=== PATIENT | female | born 1975 | race Caucasian/White ===

== ENCOUNTER 2021-09-22 12:45 | Outpatient (RCR) | payer MEDICAID, OTHER | END 2021-10-15 | disposition home or self-care (01) | LOC: ONC 12:45 | PROVIDERS: ATTEND Internal Medicine Hematology & Oncology | DX: C56.9 Malignant neoplasm of unspecified ovary (principal); C73 Malignant neoplasm of thyroid gland; E11.9 Type 2 diabetes mellitus without complications; I10 Essential (primary) hypertension; K21.9 Gastro-esophageal reflux disease without esophagitis; F32.9 Major depressive disorder, single episode, unspecified; Z90.710 Acquired absence of both cervix and uterus; Z92.21 Personal history of antineoplastic chemotherapy; Z90.89 Acquired absence of other organs | CPT/HCPCS: 99214 ==

== ENCOUNTER → 2021-11-08 | Outpatient (CLI) | payer MEDICAID ==
[~2021-11-08] MED LIST: CATHETER FLUSH 10 ML SYR IV PRN; HOLD METFORMIN - RECEIVED CONTRAST 20 ML VIAL IV SCH; IOHEXOL 350 MG/ML 100 ML (OMNIPAQUE 350) VIAL IV ONE; NS 100 ML (IVPB) BAG IV ONE
--- NOTE | 2021-11-08 15:32 | Diagnostic Imaging Report ---
EXAMINATION: CT neck, chest, abdomen and pelvis with intravenous contrast. TECHNIQUE: Multiple contiguous axial images were obtained through the neck, chest, abdomen and pelvis after the uneventful administration of intravenous contrast. All CT scans use one or more of the following dose optimizing techniques: automated exposure control, MA and/or KvP adjustment based on patient size and exam type or iterative reconstruction. 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 COMPARISON: None. FINDINGS: Neck CT: The posterior nasopharynx and oropharynx demonstrate appropriate symmetry. There is no displacement of the parapharyngeal fat planes. There is no abnormal process evident within the prevertebral or retropharyngeal space. There is no evidence of abnormal thickening of the epiglottis or aryepiglottic folds. The vocal folds appear symmetric. The parotid and submandibular glands are unremarkable. The thyroid is surgically absent. No evidence of recurrent or residual thyroid tissue in the surgical bed. No pathologically enlarged lymphadenopathy is seen in the neck. No focal inflammatory changes or soft tissue mass. No loculated fluid collections. The vascular structures the neck demonstrate no evidence of high-grade stenosis on this nondedicated exam. The visualized intracranial contents demonstrate no evidence of pathologic intracranial enhancement or intracranial mass effect. Visualized orbital contents are unremarkable. Retained secretions are seen in the right maxillary sinus. The mastoid air cells are clear. No acute abnormalities are seen in the cervical spine. The craniocervical junction is intact. Chest CT: The heart size is normal. No pericardial effusion is present. There is no mediastinal, hilar, or axillary lymphadenopathy. No focal consolidation or suspicious pulmonary nodules. No central endobronchial obstructing lesions. No pleural effusion or pneumothorax. Prior laminectomy is visualized from T1 to T9. There are subtle sclerotic findings in the T6 and T7 vertebral bodies. No evidence of acute fracture. Abdomen and pelvis CT: No hydronephrosis or renal calculi. No solid renal masses seen. There is normal excretion of contrast on delayed images. The urinary bladder is unremarkable. The liver, spleen, pancreas, and adrenal glands have a normal appearance. The gallbladder is unremarkable. There is no pathologically enlarged mesenteric or retroperitoneal adenopathy. A ventral hernia is seen superior to the umbilical region extending right of midline. This contains a loop of small bowel. No associated bowel obstruction is seen. Normal appendix is seen in the right lower quadrant. There is no free fluid or free air. No acute osseous abnormalities. IMPRESSION: 1. Postsurgical changes of thyroidectomy. No residual or recurrent thyroid tissue. No pathologically enlarged lymphadenopathy in neck, chest, abdomen and pelvis. 2. Subtle sclerotic findings in the T6 and T7 vertebral bodies. This is nonspecific and attention on followup is recommended. If indicated MRI of the thoracic spine may be considered to further evaluate. 3. No evidence of solid organ metastatic disease in the abdomen and pelvis. No suspicious pulmonary nodules in the chest. 4. Ventral hernia extending right of midline containing a loop of small bowel. No associated bowel obstruction or significant inflammatory changes. Dictated by: Dictated on workstation # [id number]
== END ==
LOC: RAD 11:45
PROVIDERS: ATTEND Internal Medicine Hematology & Oncology
DX: C73 Malignant neoplasm of thyroid gland (principal); K43.9 Ventral hernia without obstruction or gangrene; G95.89 Other specified diseases of spinal cord; Z90.89 Acquired absence of other organs
CPT/HCPCS: 70491; 71260; 74176

== ENCOUNTER 2021-11-12 09:44 | Outpatient (RCR) | payer MEDICAID ==
[2021-11-08 11:35] LABS: BASOPHILS % (AUTO) 0 % (0-10); EOSINOPHILS # (AUTO) 0.1 10^3/uL (0.0-0.3); EOSINOPHILS % (AUTO) 2 % (0-10); HEMATOCRIT 34 % (35-52); HEMOGLOBIN 10.5 g/dL (11.5-16.0); LYMPHOCYTES % (AUTO) 23 % (12-44); MEAN CORPUSCULAR HEMOGLOBIN 26 pg (25-34); MEAN CORPUSCULAR HGB CONC 31 g/dL (32-36); MEAN CORPUSCULAR VOLUME 85 fL (80-99); MEAN PLATELET VOLUME 10.6 fL (9.0-12.2); MONOCYTES # (AUTO) 0.5 10^3/uL (0.0-1.0); MONOCYTES % (AUTO) 6 % (0-12); NEUTROPHILS # (AUTO) 6.2 10^3/uL (1.8-7.8); NEUTROPHILS % (AUTO) 70 % (42-75); PLATELET COUNT 272 10^3/uL (130-400); WHITE BLOOD COUNT 8.9 10^3/uL (4.3-11.0)
[2021-11-08 11:59] LABS: ALBUMIN 3.7 GM/DL (3.2-4.5); BILIRUBIN,TOTAL 0.3 MG/DL (0.1-1.0); CALCIUM 9.2 MG/DL (8.5-10.1); CREATININE SERUM 1.7 MG/DL (0.60-1.30); POTASSIUM 4.3 MMOL/L (3.6-5.0); TOTAL PROTEIN 7.8 GM/DL (6.4-8.2)
[2021-11-12 11:54] LABS: CREATININE SERUM 1.3 MG/DL (0.60-1.30)
== END 2021-11-15 | disposition home or self-care (01) ==
LOC: ONC 09:44
PROVIDERS: ATTEND Internal Medicine Hematology & Oncology
DX: Z45.2 Encounter for adjustment and management of vascular access device (principal); C56.9 Malignant neoplasm of unspecified ovary; C73 Malignant neoplasm of thyroid gland; E11.9 Type 2 diabetes mellitus without complications; I10 Essential (primary) hypertension; K21.9 Gastro-esophageal reflux disease without esophagitis; Z90.710 Acquired absence of both cervix and uterus; Z92.21 Personal history of antineoplastic chemotherapy
CPT/HCPCS: 36591; 80053; 82565; 82728; 82746; 83540; 83550; 84432; 84443; 84520; 85025; 86304; 86376; 86800; 99213

== ENCOUNTER → 2021-11-16 | Outpatient (CLI) | payer MEDICAID ==
[~2021-11-16] MED LIST changes: -CATHETER FLUSH 10 ML SYR IV PRN; +GADOTERATE 0.5 MMOL/ML (CLARISCAN) 20 ML VIAL IV ONE; -HOLD METFORMIN - RECEIVED CONTRAST 20 ML VIAL IV SCH; -IOHEXOL 350 MG/ML 100 ML (OMNIPAQUE 350) VIAL IV ONE; -NS 100 ML (IVPB) BAG IV ONE
--- NOTE | 2021-11-16 11:22 | Diagnostic Imaging Report ---
TECHNIQUE: Multiplanar, multisequence MRI of the thoracic spine was performed with and without contrast. REASON FOR EXAM: Abnormal findings on recent CT. Further characterization. History of malignant neoplasm of the throat. COMPARISON: 11/08/2021. FINDINGS: No acute fracture or dislocation is seen in the thoracic spine. No focal suspicious osseous lesions are identified. No abnormal enhancement. The area of sclerosis in the T6 and T7 vertebral bodies seen on the prior CT does not correspond to any underlying mass or edema. There is likely chronic injury with associated calcification at the left T6-T7 facet. Prior laminectomy changes are again visualized from T1 to T9. Alignment of the thoracic spine is anatomic. The thoracic spinal cord demonstrates normal intrinsic signal. No evidence of abnormal enhancement or cord expansion. No epidural collections. Degenerative changes are seen throughout the thoracic spine with posterior disc bulges and facet hypertrophy. There is contact with the anterior aspect of the thoracic spinal cord at the T2-T3, T5-T6, and T7-T8 levels. No significant spinal canal stenosis is seen in the thoracic spine. Unujiwug-id-rdyzdj left foraminal stenosis is present at the T6-T7 level. The paraspinal soft tissues are unremarkable. IMPRESSION: 1. No abnormal enhancement or underlying suspicious mass in the T6 and T7 vertebral bodies in the area of prior sclerosis seen on CT. Findings may represent old injury, particularly given the prominent calcification associated with the left T6-T7 facet. 2. No acute fracture or dislocation in the thoracic spine. 3. Normal signal characteristics of the thoracic spinal cord. 4. Degenerative changes in the thoracic spine, greatest at T2-T3, T5-T6, T6-T7, and T7-T8. Dictated by: Dictated on workstation # [id number]
== END ==
LOC: RAD 10:15
PROVIDERS: ATTEND Internal Medicine Hematology & Oncology
DX: M47.814 Spondylosis without myelopathy or radiculopathy, thoracic region (principal); C73 Malignant neoplasm of thyroid gland
CPT/HCPCS: 72157

== ENCOUNTER 2021-11-26 10:36 | Outpatient (RCR) | payer MEDICAID ==
[2021-11-26 11:07] LABS: BASOPHILS % (AUTO) 0 % (0-10); EOSINOPHILS # (AUTO) 0.2 10^3/uL (0.0-0.3); EOSINOPHILS % (AUTO) 2 % (0-10); HEMATOCRIT 35 % (35-52); HEMOGLOBIN 10.8 g/dL (11.5-16.0); LYMPHOCYTES # (AUTO) 1.9 10^3/uL (1.0-4.0); LYMPHOCYTES % (AUTO) 17 % (12-44); MEAN CORPUSCULAR HEMOGLOBIN 27 pg (25-34); MEAN CORPUSCULAR HGB CONC 31 g/dL (32-36); MEAN CORPUSCULAR VOLUME 86 fL (80-99); MEAN PLATELET VOLUME 10.8 fL (9.0-12.2); MONOCYTES # (AUTO) 0.7 10^3/uL (0.0-1.0); MONOCYTES % (AUTO) 7 % (0-12); NEUTROPHILS # (AUTO) 8.1 10^3/uL (1.8-7.8); NEUTROPHILS % (AUTO) 74 % (42-75); PLATELET COUNT 267 10^3/uL (130-400)
== END 2021-12-13 | disposition home or self-care (01) ==
LOC: ONC 10:36
PROVIDERS: ATTEND Internal Medicine Hematology & Oncology
DX: Z45.2 Encounter for adjustment and management of vascular access device (principal); C56.9 Malignant neoplasm of unspecified ovary; C73 Malignant neoplasm of thyroid gland; E11.9 Type 2 diabetes mellitus without complications; D50.9 Iron deficiency anemia, unspecified; I10 Essential (primary) hypertension; K21.9 Gastro-esophageal reflux disease without esophagitis; Z90.710 Acquired absence of both cervix and uterus; Z92.21 Personal history of antineoplastic chemotherapy
CPT/HCPCS: 36415; 85025; 99213

== ENCOUNTER 2022-02-25 10:49 | Outpatient (RCR) | payer MEDICAID ==
[2022-02-25 11:24] LABS: CREATININE SERUM 2.11 MG/DL (0.60-1.30)
[2022-02-25 11:32] LABS: BASOPHILS % (AUTO) 0 % (0-10); EOSINOPHILS # (AUTO) 0.1 10^3/uL (0.0-0.3); EOSINOPHILS % (AUTO) 1 % (0-10); HEMATOCRIT 35 % (35-52); HEMOGLOBIN 11.2 g/dL (11.5-16.0); LYMPHOCYTES # (AUTO) 2.6 10^3/uL (1.0-4.0); LYMPHOCYTES % (AUTO) 27 % (12-44); MEAN CORPUSCULAR HEMOGLOBIN 27 pg (25-34); MEAN CORPUSCULAR HGB CONC 32 g/dL (32-36); MEAN CORPUSCULAR VOLUME 83 fL (80-99); MEAN PLATELET VOLUME 11.9 fL (9.0-12.2); MONOCYTES # (AUTO) 0.7 10^3/uL (0.0-1.0); MONOCYTES % (AUTO) 7 % (0-12); NEUTROPHILS # (AUTO) 6.1 10^3/uL (1.8-7.8); NEUTROPHILS % (AUTO) 64 % (42-75); PLATELET COUNT 225 10^3/uL (130-400); WHITE BLOOD COUNT 9.6 10^3/uL (4.3-11.0)
[2022-02-25] MEDS ORDERED: HEParin (CENTRAL IV FLUSH) 500 UNIT/5 ML SYR ONE (11:39)
[2022-02-25 11:47] LABS: ALBUMIN 3.9 GM/DL (3.2-4.5); BILIRUBIN,TOTAL 0.3 MG/DL (0.1-1.0); CALCIUM 9.2 MG/DL (8.5-10.1); POTASSIUM 4.5 MMOL/L (3.6-5.0); TOTAL PROTEIN 7.6 GM/DL (6.4-8.2)
== END 2022-03-15 | disposition home or self-care (01) ==
LOC: ONC 10:49
PROVIDERS: ATTEND Internal Medicine Hematology & Oncology
DX: C56.9 Malignant neoplasm of unspecified ovary (principal); C73 Malignant neoplasm of thyroid gland; E11.9 Type 2 diabetes mellitus without complications; D50.9 Iron deficiency anemia, unspecified; I10 Essential (primary) hypertension; K21.9 Gastro-esophageal reflux disease without esophagitis; Z90.710 Acquired absence of both cervix and uterus; Z92.21 Personal history of antineoplastic chemotherapy
CPT/HCPCS: 36415; 80053; 82728; 82746; 83540; 83550; 84432; 84443; 85025; 86304; 86800

== ENCOUNTER 2022-07-07 20:27 | Emergency (ER) | payer MEDICAID ==
[~2022-07-07] VITALS: Ht 162 cm; Wt 100.0 kg
[2022-07-07] MEDS ORDERED: TETANUS,DIPTH,PERTUSS P/F (BOOSTRIX) 0.5 ML VIAL IM ONE (20:30)
--- NOTE | 2022-07-07 20:41 | ED Lower Extremity ---
General Chief Complaint: Trauma-Non Activation Stated Complaint: FALL Source: patient, EMS History of Present Illness Date Seen by Provider: Jul 07, 2022 Time Seen by Provider: 20:27 Initial Comments PT ARRIVES VIA EMS FROM HOME JUST PRIOR TO ARRIVAL, PT TRIPPED ON UNEVEN PAVEMENT AND FELL, LANDING DIRECTLY ON HER RIGHT KNEE NO OTHER INJURIES FROM THE INCIDENT NO PRIOR INJURIES OR SURGERY ON THIS KNEE PT HAS HISTORY OF FREQUENT FALLS, AND HAS A CANE BUT DOES NOT USE IT PT IS DIABETIC WITH HISTORY OF PERIPHERAL NEUROPATHY NO NEW PARESTHESIAS OR MOTOR DEFICITS PT IS NOT ON ASPIRIN OR BLOOD THINNERS LAST TETANUS IN 2010 PCP: RICHARD PATTERSON MISHMASH Allergies and Home Medications Allergies Coded Allergies: No Allergy Information Available (Unverified , 11/08/21) Patient Home Medication List Home Medication List Reviewed: Yes Tramadol HCl (Ultram) 50 Mg Tablet, 50 MG PO Q4H Prescribed by: LATOSHA RUBY on 07/07/222206 Review of Systems Constitutional: no symptoms reported Respiratory: no symptoms reported Cardiovascular: no symptoms reported Gastrointestinal: no symptoms reported Genitourinary: no symptoms reported Musculoskeletal: see HPI Skin: other (ABRASIONS TO RIGHT KNEE) Psychiatric/Neurological: No Symptoms Reported, Pre-Existing Deficit (PERIPHERAL NEUROPATHY) Past Cptxlsx-Lvaeaz-Emontz Hx Past Medical History Surgeries: Yes (LEFT KNEE SCOPE/MENISCUS TEAR) Gallbladder, Orthopedic Respiratory: No Cardiac: Yes High Cholesterol, Hypertension Neurological: Yes Neuropathy Genitourinary: No Gastrointestinal: Yes Gastroesophageal Reflux Musculoskeletal: Yes (FREQUENT FALLS) Arthritis Endocrine: Yes Diabetes, Insulin dep, Hypothyroidsim HEENT: No (GLASSES) Cancer: No Psychosocial: No Integumentary: No Blood Disorders: No Physical Exam Vital Signs Vital Signs - First Documented 07/07/22 07/07/22 20:27 22:27 Temp 36.4 Pulse 88 Resp 16 B/P (MAP) 149/89 (109) Pulse Ox 98 O2 Delivery Room Air Capillary Refill : Height, Weight, BMI Height: '" Weight: lbs. oz. kg; BMI Method: General Appearance: WD/WN, no apparent distress, obese Neck: non-tender, full range of motion Cardiovascular: normal peripheral pulses, regular rate, rhythm, no murmur Hips: bilateral hip normal inspection Legs: bilateral leg normal inspection Knees: right knee ecchymosis, right knee pain, right knee soft tissue tenderness, right knee swelling, right knee other (ABRASION) Ankles: bilateral ankle normal inspection Feet: bilateral foot normal inspection Neurologic/Tendon: normal motor functions, normal tendon functions, other (PERIPHERAL NEUROPATHY) Neurologic/Psychiatric: naprapath II-XII nml as tested, alert, normal mood/affect, oriented x 3 Skin: normal color, warm/dry, ecchymosis (AND ABRASION TO RIGHT KNEE) Progress/Results/Core Measures Results/Orders My Orders Orders - LATOSHA RUBY DO Dipht,Pertuss(Acell),Tet Adult (Boostrix (07/07/22 20:30) Knee, Right, 4 Views Or > (07/07/22 20:30) Rx-Tramadol Hcl (Rx-Ultram) (07/07/22 22:01) Calvin Bandage (07/07/22 22:01) Knee Immobilizer (07/07/22 22:01) Medications Given in ED Current Medications Medications Dose Ordered Sig/Fang Route Start Time Stop Time Status Last Admin Dose Admin Diphtheria/ Tetanus/Acell Pertussis 0.5 ml ONCE ONCE IM 07/07/22 20:30 07/07/22 20:31 DC 07/07/22 22:18 0.5 ML Vital Signs/I&O 07/07/22 07/07/22 20:27 22:27 Temp 36.4 36.6 Pulse 88 84 Resp 16 16 B/P (MAP) 149/89 (109) 137/71 Pulse Ox 98 O2 Delivery Room Air Progress Progress Note : Progress Note AT DISMISSAL, PT STATES THAT SHE WAS DX WITH A "STRESS FRACTURE" IN HER LEFT FOOT LAST WEEK AT [facility]. NO KNOWN INJURY--JUST HAD PAIN AND SWELLING. NO RX'S OR TREATMENT FOR IT, AND NO REFERRAL TO [facility] OR ORTHOPEDIC SURGEON. PT STATES SHE HAS A WALKER AT HOME, BUT DOES NOT USE IT SHE ALSO HAS ACCESS TO A WHEELCHAIR--FAMILY MEMBER HAS ONE AND IS NOT USING IT. Diagnostic Imaging Comments XRAYS RIGHT KNEE--PER RADIOLOGIST REPORT AT 215 FINDINGS: 3 views of the knee demonstrate a displaced fracture of the inferior pole of the patella with diastasis of approximately 1.3 cm. Surrounding soft tissue swelling is noted with minimal joint fluid present. On one view only, there is a vague lucency along the mid aspect of the tibia near the medial tibial eminence which likely represents a nutrient foramen with a nondisplaced fracture less likely but not excluded. There is no depression of the tibial plateau. The joint spaces appear maintained. IMPRESSION: 1. Displaced patellar fracture with minimal joint effusion. 2. Vague lucency in the proximal mid tibial plateau, nonspecific, see above discussion. Reviewed: Reviewed by Me Departure Impression Primary Impression: Closed fracture of right patella Additional Impression: Qkkzinsaib-vbqewmprv-rliwaeb (DPT) vaccination administered at current visit Disposition: HOME, SELF-CARE Condition: Stable Departure-Patient Inst. Decision time for Depature: 22:00 Referrals: MURPHY HUTCHISON APRN (PCP) Primary Care Physician ABBEY HIDALGO MD Patient Instructions: Diphtheria and Tetanus Toxoids, and Acellular Pertussis Vaccine, Patella Fracture (DC), Skin Abrasions (DC) Add. Discharge Instructions: ICE TO AREA AT 20 MINUTE INTERVALS CALVIN WRAP AND KNEE IMMOBILIZER AT ALL TIMES ELEVATE LEG MUCH POSSIBLE NO WEIGHT BEARING AT ANY TIME-- USE YOUR WALKER OR WHEELCHAIR FOLLOW UP WITH DR. HIDALGO, ORTHOPEDIC SURGEON, FOR FURTHER CARE--CALL IN THE MORNING TO SCHEDULE APPOINTMENT. All discharge instructions reviewed with patient and/or family. Voiced understanding. Scripts Tramadol HCl (Ultram) 50 Mg Tablet 50 MG PO Q4H for Pain, #20 TAB Prov: LATOSHA RUBY DO 07/07/22 LATOSHA RUBY DO Jul 07, 2022 20:41
--- NOTE | 2022-07-07 21:44 | Diagnostic Imaging Report ---
INDICATION: Fall, pain. EXAMINATION: Right knee, 07/07/2022. FINDINGS: 3 views of the knee demonstrate a displaced fracture of the inferior pole of the patella with diastasis of approximately 1.3 cm. Surrounding soft tissue swelling is noted with minimal joint fluid present. On one view only, there is a vague lucency along the mid aspect of the tibia near the medial tibial eminence which likely represents a nutrient foramen with a nondisplaced fracture less likely but not excluded. There is no depression of the tibial plateau. The joint spaces appear maintained. IMPRESSION: 1. Displaced patellar fracture with minimal joint effusion. 2. Vague lucency in the proximal mid tibial plateau, nonspecific, see above discussion. Dictated by: Dictated on workstation # [id number]
[2022-07-07] MEDS ORDERED: TRAM-42 PO (22:06)
[2022-07-07 22:27] VITALS: BP 137/71
== END 2022-07-07 22:27 | disposition home or self-care (01) ==
LOC: EDUNIT# 20:27 → ER 20:28
DX: S82.001A Unspecified fracture of right patella, initial encounter for closed fracture (principal); E11.42 Type 2 diabetes mellitus with diabetic polyneuropathy; Z23 Encounter for immunization; Z28.311 Partially vaccinated for COVID-19; Z79.4 Long term (current) use of insulin; W01.0XXA Fall on same level from slipping, tripping and stumbling without subsequent striking against object, initial encounter
CPT/HCPCS: 73564; 90715

== ENCOUNTER → 2022-07-13 | Outpatient (CLI) | payer MEDICAID ==
[~2022-07-13] VITALS: Ht 162.6 cm; Wt 100.0 kg
[~2022-07-13] MED LIST changes: +ALOG25TA2 PO; +CETI10CA PO; +DIPH25CA79 PO; +DULO60CA59 PO; +FAMO40TA72 PO; +FLUT9.9S NS; -GADOTERATE 0.5 MMOL/ML (CLARISCAN) 20 ML VIAL IV ONE; +INSU100V5 SQ; +LEVO100C4 PO; +LISI10TA25 PO; +NOVALOG; +PANT40TA52 PO; +PREG50CA2 PO; +PSEU60TA88 PO; +ROSU20TA32 PO; +TRAM-42 PO
== END ==
LOC: PREOP 05:34
PROVIDERS: ATTEND Orthopaedic Surgery
DX: S82.001A Unspecified fracture of right patella, initial encounter for closed fracture (principal); X58.XXXA Exposure to other specified factors, initial encounter

== ENCOUNTER 2022-07-20 10:15 | Day surgery (SDC) | payer MEDICAID ==
--- NOTE | 2022-07-12 14:01 | HISTORY AND PHYSICAL ---
DATE OF SERVICE: ADMISSION HISTORY AND PHYSICAL DATE OF ADMISSION: 07/20/2022. This will be for outpatient surgery on 07/20/2022 for right patella fixation. HISTORY OF PRESENT ILLNESS: The patient is a 47-year-old female when she tripped on the sidewalk she tripped over a curb and landed directly on her right knee. This occurred last week. She was found to have a displaced inferior pole patellar fracture. There is comminution of the inferior pole. She is unable to extend her knee. Because of this, recommended the patient undergo operative fixation. REVIEW OF SYSTEMS: No chest pain, no shortness of breath, no dysuria. PAST MEDICAL HISTORY: Hyperlipidemia, hyperthyroidism, arthritis, type 2 diabetes. PAST SURGICAL HISTORY: Cholecystectomy, left ACL reconstruction . FAMILY HISTORY: Significant for diabetes, heart disease, hypertension, hyperlipidemia, thyroid disease. MEDICATIONS: metformin, Lyrica, pantoprazole, NovoLog, famotidine, insulin. ALLERGIES: BACTRIM. SOCIAL HISTORY: The patient denies alcohol and tobacco use. PHYSICAL EXAMINATION: GENERAL: The patient is well-developed, well-nourished, in no acute distress. HEENT: Normocephalic, atraumatic. Pupils are equal, round and reactive to light. Oropharynx is clear. NECK: Supple, no lymphadenopathy. LUNGS: Clear to auscultation bilaterally. HEART: Regular rate and rhythm. ABDOMEN: Soft, nontender, nondistended. EXTREMITIES: The patient is unable to extend her right knee. There was an abrasion of her patella. There is no significant surrounding erythema or warmth. She is tender over her fracture site. Pulses were symmetric. Sensation is intact distally. IMPRESSION: Displaced inferior pole patellar fracture. PLAN: Open reduction and internal fixation of the right patella versus fragment excision with patellar tendon repair. We discussed risks, benefits, options, ramifications and recovery. She understands and wishes to proceed. Job ID: [id number] DocumentID: [id number] Dictated Date: 07/12/2022 13:45:38 [employer] Date: 07/12/2022 14:00:25 Dictated By: ABBEY HIDALGO MD
[~2022-07-20] VITALS: Ht 162.6 cm; Wt 100.0 kg
[2022-07-20] VITALS (12 sets, daily range): BP systolic 135–167; BP diastolic 79–99
[~2022-07-20 10:15] MED LIST changes: +oxyCODONE/APAP 5/325MG (PERCOCET 5) TABLET PO PRN
--- NOTE | 2022-07-20 10:39 | Progress Note-Pre Operative ---
Pre-Operative Progress Note Date of Available H&P: Aug 11, 2021 Date H&P Reviewed: Jul 20, 2022 Time H&P Reviewed: 10:39 Changes from last HP none Pre-Operative Diagnosis: right patella inferior pole fracture ABBEY HIDALGO MD Jul 20, 2022 10:39
--- NOTE | 2022-07-20 10:40 | Progress Note-Post Operative ---
Post-Operative Progess Note Surgeon (s)/Guard Sergeant (s) Surgeon ABBEY HIDALGO MD Guard Sergeant: Aric Hopkins Pre-Operative Diagnosis right patella inferior pole fracture Post-Operative Diagnosis right patella inferior pole fracture Procedure & Operative Findings Date of Procedure 07/20/22 Procedure Performed/Findings right patella tendon repair and partial patellectomy Anesthesia Type GETA Estimated Blood Loss Estimated blood loss (mL): minimal Specimens/Packing Specimens Removed none Packing: none ABBEY HIDALGO MD Jul 20, 2022 10:40
[2022-07-20] MEDS ORDERED: fentaNYL INJ 100 MCG/2 ML AMP ONE (10:42)
[2022-07-20] MEDS ORDERED: proPOfol 200 MG/20 ML (DIPRIVAN) VIAL IV ONE (10:42)
[2022-07-20] MEDS ORDERED: ONDANSETRON 4 MG/2 ML (SDV) Z0FRAN ONE (10:42)
[2022-07-20] MEDS ORDERED: SEVOFLURANE (ULTANE) 15 ML INHAL SOLN ONE (10:42)
[2022-07-20] MEDS ORDERED: LIDOCAINE PF 2% 5 ML (XYLOCAINE) VIAL ONE (10:42)
[2022-07-20] MEDS ORDERED: MIDAZOLAM 2 MG/2 ML (VERSED) VIAL ONE (10:42)
[2022-07-20] MEDS: LACTATED RINGERS 1,000 ML IV PRN ×2 (10:50→13:43)
[2022-07-20] MEDS ORDERED: BUPIVACAINE 0.25% 30 ML (SENSORCAINE) VIAL ONE (10:52)
[2022-07-20] MEDS ORDERED: inSUlin (REGULAR) HUMAN 1 UNIT/0.01 ML (CHARGE PER UNIT) ONE ×2 (10:57→11:28)
[2022-07-20] MEDS ORDERED: inSUlin (REGULAR) HUMAN 1 UNIT/0.01 ML (CHARGE PER UNIT) IV ONE ×2 (11:15→11:30)
[2022-07-20] MEDS ORDERED: ceFAZolin INJECTION 1,000 MG VIAL IV ONE (11:15)
[2022-07-20] MEDS ORDERED: ceFAZolin INJECTION 2,000 MG in NS (IVPB) 50 ML IV NR (11:15)
[2022-07-20] MEDS ORDERED: NS (IVPB) 50 ML ONE (11:35)
[2022-07-20] MEDS ORDERED: ceFAZolin INJECTION 2,000 MG ONE (11:35)
[2022-07-20] MEDS ORDERED: HYDROmorphone 2 MG/ML VIAL (DILAUDID) ONE (12:09)
[2022-07-20] MEDS ORDERED: BUPIVACAINE 0.25% 30 ML (SENSORCAINE) VIAL INJ ONE (12:40)
[2022-07-20] MEDS ORDERED: ONDANSETRON 4 MG/2 ML (SDV) Z0FRAN IVP PRN (13:00)
[2022-07-20] MEDS ORDERED: HYDROmorphone 2 MG/ML VIAL (DILAUDID) IV ONE (13:00)
[2022-07-20] MEDS ORDERED: morphine INJ 10 MG/ML 1ML (SYR OR VIAL) IVP ONE (13:00)
[2022-07-20] MEDS ORDERED: morphine INJ 10 MG/ML 1ML (SYR OR VIAL) ONE (13:39)
[2022-07-20] MEDS ORDERED: LACTATED RINGERS 1,000 ML IV ONE (13:42)
--- NOTE | 2022-07-20 15:28 | Physical Therapy Ortho Eval ---
PT Orthopedic Evaluation Type of Surgery right patella ORIF, brace limits knee flexion to 30 degrees, 50% WB on right leg Prior Level of Function Current Living Status: Spouse Subjective Subjective Patient in bed pre tx, agrees to PT, has 8/10 pain in right leg. Patient states her has built a ramp so she can enter her home easier. Entry Into Home: Ramp Motor Control Motor Control: Motor Control WNL Transfer SCALE: Activities may be completed with or without assistive devices. 8-Spoibxzzzr-ykshmtz completes the activity by him/herself with no assistance from a helper. 5-Set-up or Clean-up Assistance-helper sets up or cleans up; patient completes activity. [place] assists only prior to or following the activity. 4-Supervision or Touching Assistance-helper provides verbal cues and/or touching/steadying and/or contact guard assistance as patient completes activity. Assistance may be provided throughout the activity or intermittently. 3-Partial/Moderate Assistance-helper does LESS THAN HALF the effort. [place] lifts, holds or supports trunk or limbs, but provides less than half the effort. 2-Substantial/Maximal Assistance-helper does MORE THAN HALF the effort. [place] lifts or holds trunk or limbs and provides more than half the effort. 4-Yixrflbaf-krfkak does ALL the effort. Patient does none of the effort to complete the activity. Or, the assistance of 2 or more helpers is required for the patient to complete the activity. If activity was not attempted, code reason: 7-Patient Refused. 9-Not Applicable-not attempted and the patient did not perform the activity before the current illness, exacerbation or injury. 10-Not Attempted due to Environmental Limitations-(lack of equipment, weather restraints, etc.). 88-Not Attempted due to Medical Conditions or Safety Concerns. Transfers (B, C, W/C) (QC): 4 Gait Right Lower Extremity: Right Weight Bearing Status RLE: Partial Weight Bearing Left Lower Extremity: Left Weight Bearing Status LLE: Full Weight Bearing Summary/Comments Patient ambulated 20' with a rolling walker with CGA, safe ambulation and she is compliant with her weight bearing restrictions Treatment Rendered Treatment: Therapeutic Exercises, Gait Train Exercise Instruction: Quad Sets, Straight Leg Raise, Ankle Pumps Assessment/Goals Goal Time Frame: 1 Visit Understands HEP: Yes Safe Ambulation: Yes Plan Treatment Plan: Discharge PT/Family Agrees to Plan: Yes Time Time In: 1507 Time Out: 1520 Total Billed Treatment Time: 13 Billed Treatment Time 1 visit EVL BELINDA POTTS PT Jul 20, 2022 15:28
[2022-07-20] MEDS ORDERED: ONDANSETRON 4 MG/2 ML (SDV) Z0FRAN IVP ONE (15:30)
--- NOTE | 2022-07-20 15:33 | Anesthesia-General Post-Op ---
General Patient Condition Mental Status/LOC: Same as Preop Cardiovascular: Satisfactory Nausea/Vomiting: Absent Respiratory: Satisfactory Pain: Controlled Complications: Absent Post Op Complications Complications None Follow Up Care/Instructions Patient Instructions None needed. Anesthesia/Patient Condition Patient Condition Patient was seen in PACU and doing well with no complaints, stable vital signs, no apparent adverse anesthesia problems. No complications reported per nursing. JONATHAN RODRIGUEZ DO Jul 20, 2022 15:33
--- NOTE | 2022-07-21 00:08 | OPERATIVE REPORT ---
DATE OF SERVICE: 07/20/2022 PREOPERATIVE DIAGNOSIS: Comminuted right inferior pole patellar fracture, closed and displaced. POSTOPERATIVE DIAGNOSIS: Comminuted right inferior pole patellar fracture, closed and displaced. PROCEDURES PERFORMED: 1. Right patellar tendon repair. 2. Right partial patellectomy. SURGEON: Alberto Hidalgo MD CERTIFED REFRIGERATION OPERATOR: Aric Hopkins, who assisted throughout the procedure and closed the incision. ANESTHESIA: General endotracheal by Dr. Ladd. TOURNIQUET TIME: 36 minutes at 300 mmHg. ESTIMATED BLOOD LOSS: Minimal. DRAINS: None. COMPLICATIONS: None. POSTOPERATIVE PLAN: A 0 to 30 degrees range of motion with 50% weightbearing for 2 weeks and then advance to weightbearing as tolerated with gradual resumption of flexion. The patient was transferred to the recovery room awake and stable condition. STATEMENT OF MEDICAL NECESSITY: The patient is a 47-year-old female, who fell on her flexed knee, sustaining a displaced inferior pole patellar fracture. This was severely comminuted and the patient was counseled that this would likely be irreparable due to the comminution and the small fragment sizes. She understood this and elected to proceed with surgical intervention. DESCRIPTION OF PROCEDURE: After risks and benefits of the procedure were discussed and questions were answered, an informed consent was signed and placed on chart, the operative site was confirmed in the preoperative holding area initialed by the surgeon. The patient was then transferred to the operating room and after adequate levels of general endotracheal anesthetic were obtained, a timeout was called, confirming the operative site. The right lower extremity was prepped and draped in the usual sterile fashion with the leg elevated and the knee flexed, tourniquet was inflated to 300 mmHg. Longitudinal incision was made. Underlying soft tissues were carefully dissected. The retinaculum was incised exposing the comminuted fragments, which were unable to hold any hardware. Therefore, they were excised sharply. The patellar tendon was then repaired to a bleeding bed through 3 vertical tunnels. A #5 Tevdek was used to repair the tendon in a locked running fashion. The 2 sutures were used, which created forearms at the proximal aspect of the tendon stump. These were then passed through the respective drill holes, which had been prepared in the patella. These were then tied over bony bridge with a patellar tendon reapproximated to the bleeding bed of the patella inferior pole and excellent repair was obtained with no undue tension at the repair site. The retinaculum was then closed with #1 Vicryl in kqofdq-ch-fbeel interrupted fashion. The knee was flexed and was stable to beyond 90 degrees. The wound was copiously irrigated. The tourniquet was deflated, 3-0 Vicryl was used to reapproximate subcutaneous tissue, narda used on the skin. A soft dressing was applied followed by a brace. The patient was transferred to the recovery room awake and in stable condition. Job ID: [id number] DocumentID: [id number] Dictated Date: 07/20/2022 12:52:22 Personal Development Mentor Date: 07/21/2022 00:08:20 Dictated By: ALBERTO HIDALGO MD
== END 2022-07-20 16:55 ==
LOC: SDC 10:15
PROVIDERS: ATTEND Orthopaedic Surgery
DX: S82.041A Displaced comminuted fracture of right patella, initial encounter for closed fracture (principal); E66.9 Obesity, unspecified; Z68.37 Body mass index [BMI] 37.0-37.9, adult
CPT/HCPCS: 82947; 87081

== ENCOUNTER 2023-02-01 05:29 | Outpatient (CLI) | payer MEDICAID ==
[~2023-02-01] VITALS: Ht 162.6 cm; Wt 100.0 kg
[~2023-02-01 05:29] MED LIST changes: -oxyCODONE/APAP 5/325MG (PERCOCET 5) TABLET PO PRN
== END 2023-02-01 17:45 | disposition home or self-care (01) ==
LOC: PREOP 05:29
PROVIDERS: ATTEND Surgery
DX: Z01.818 Encounter for other preprocedural examination (principal)

== ENCOUNTER 2023-02-02 10:57 | Outpatient (RCR) | payer MEDICAID ==
[2023-01-19 11:08] LABS: BASOPHILS % (AUTO) 0 % (0-10); EOSINOPHILS # (AUTO) 0.1 10^3/uL (0.0-0.3); EOSINOPHILS % (AUTO) 1 % (0-10); HEMATOCRIT 36 % (35-52); HEMOGLOBIN 11.9 g/dL (11.5-16.0); LYMPHOCYTES # (AUTO) 2.2 10^3/uL (1.0-4.0); LYMPHOCYTES % (AUTO) 27 % (12-44); MEAN CORPUSCULAR HEMOGLOBIN 28 pg (25-34); MEAN CORPUSCULAR HGB CONC 33 g/dL (32-36); MEAN CORPUSCULAR VOLUME 84 fL (80-99); MEAN PLATELET VOLUME 11.9 fL (9.0-12.2); MONOCYTES # (AUTO) 0.6 10^3/uL (0.0-1.0); MONOCYTES % (AUTO) 7 % (0-12); NEUTROPHILS # (AUTO) 5.4 10^3/uL (1.8-7.8); NEUTROPHILS % (AUTO) 65 % (42-75); PLATELET COUNT 252 10^3/uL (130-400); WHITE BLOOD COUNT 8.3 10^3/uL (4.3-11.0)
[2023-01-19 11:29] LABS: ALBUMIN 3.8 GM/DL (3.2-4.5); BILIRUBIN,TOTAL 0.3 MG/DL (0.1-1.0); CALCIUM 9.2 MG/DL (8.5-10.1); CREATININE SERUM 2.03 MG/DL (0.60-1.30); POTASSIUM 4.1 MMOL/L (3.6-5.0); TOTAL PROTEIN 7.9 GM/DL (6.4-8.2)
[2023-02-02 11:19] LABS: BASOPHILS % (AUTO) 0 % (0-10); EOSINOPHILS # (AUTO) 0.2 10^3/uL (0.0-0.3); EOSINOPHILS % (AUTO) 2 % (0-10); HEMATOCRIT 36 % (35-52); HEMOGLOBIN 11.8 g/dL (11.5-16.0); LYMPHOCYTES # (AUTO) 2.6 10^3/uL (1.0-4.0); LYMPHOCYTES % (AUTO) 32 % (12-44); MEAN CORPUSCULAR HEMOGLOBIN 28 pg (25-34); MEAN CORPUSCULAR HGB CONC 33 g/dL (32-36); MEAN CORPUSCULAR VOLUME 84 fL (80-99); MEAN PLATELET VOLUME 11.5 fL (9.0-12.2); MONOCYTES # (AUTO) 0.5 10^3/uL (0.0-1.0); MONOCYTES % (AUTO) 6 % (0-12); NEUTROPHILS # (AUTO) 4.6 10^3/uL (1.8-7.8); NEUTROPHILS % (AUTO) 59 % (42-75); PLATELET COUNT 262 10^3/uL (130-400); WHITE BLOOD COUNT 7.9 10^3/uL (4.3-11.0)
[2023-02-02 11:38] LABS: ALBUMIN 3.9 GM/DL (3.2-4.5); BILIRUBIN,TOTAL 0.3 MG/DL (0.1-1.0); CALCIUM 9.4 MG/DL (8.5-10.1); CREATININE SERUM 1.82 MG/DL (0.60-1.30); POTASSIUM 4.5 MMOL/L (3.6-5.0); TOTAL PROTEIN 7.8 GM/DL (6.4-8.2)
== END 2023-02-12 | disposition home or self-care (01) ==
LOC: ONC 10:57
PROVIDERS: ATTEND Internal Medicine Hematology & Oncology
DX: C73 Malignant neoplasm of thyroid gland (principal); C56.9 Malignant neoplasm of unspecified ovary; D50.9 Iron deficiency anemia, unspecified; E11.9 Type 2 diabetes mellitus without complications; I10 Essential (primary) hypertension; K21.9 Gastro-esophageal reflux disease without esophagitis; M47.814 Spondylosis without myelopathy or radiculopathy, thoracic region; K43.9 Ventral hernia without obstruction or gangrene; Z98.890 Other specified postprocedural states; Z90.710 Acquired absence of both cervix and uterus; Z90.49 Acquired absence of other specified parts of digestive tract
CPT/HCPCS: 36415; 80053; 82728; 83540; 83550; 84442; 84443; 85025; 86304; 86376; 86800

== ENCOUNTER 2023-02-08 09:17 | Day surgery (SDC) | payer MEDICAID ==
[2023-02-08] VITALS (9 sets, daily range): BP systolic 97–149; BP diastolic 32–84
[~2023-02-08] VITALS: Ht 162.5 cm; Wt 97.5 kg
[2023-02-08] MEDS ORDERED: LACTATED RINGERS 1,000 ML IV PRN (09:30)
--- NOTE | 2023-02-08 10:31 | Progress Note-Pre Operative ---
Pre-Operative Progress Note Date H&P Reviewed: Feb 08, 2023 Time H&P Reviewed: 10:28 History & Physical: H&P Reviewed, Patient Examed, No changes noted Pre-Operative Diagnosis: Venous Insufficiency RAGHU REEVES DO Feb 08, 2023 10:31
[2023-02-08] MEDS ORDERED: ceFAZolin INJECTION 2,000 MG in NS (IVPB) 50 ML IV ONE (10:45)
[2023-02-08] MEDS ORDERED: PROPOFOL INJECTION 50 ML IV ONE (11:18)
[2023-02-08] MEDS ORDERED: MIDAZOLAM 2 MG/2 ML (VERSED) VIAL ONE (11:18)
[2023-02-08] MEDS ORDERED: LIDOCAINE/EPI 1%-1:100,000 (XYLOCAINE) 20ML ONE (11:34)
--- NOTE | 2023-02-08 11:48 | Progress Note-Post Operative ---
Post-Operative Progess Note Surgeon (s)/Drilling Machine Runner (s) Surgeon ARGHU REEVES DO Drilling Machine Runner: NOLAN Kirk Pre-Operative Diagnosis Venous Insufficiency Post-Operative Diagnosis same Procedure & Operative Findings Date of Procedure 02/08/23 Procedure Performed/Findings PROCEDURE: Removal of port COMPLICATIONS: None. INDICATIONS: The patient is a 47 year-old female who had a port previously placed. Patient is ok to have port removed. The patient was explained risk and benefits of the procedure and wished to proceed with procedure. Consent was signed on the chart. PROCEDURE: The patient was taken to the operating suite and was prepped and draped in sterile fashion. A surgical pause was performed. Local anesthetic was infiltrated to the area around the port and above. A number 15 blade scalpel was used to make an incision, directly over previous incision. Cautery was used to dissect down to the port which was then grasped and then dissected around. The catheter was removed in its entirety. The port was then able to be dissected out of the pocket and elevated. The wound was then irrigated with copious amounts of irrigation. Hemostasis had been achieved. The skin was then closed using 4-0 Vicryl with 3 interrupted subcuticular stitches. The area was then washed and dried and Skin Affix placed over the incision. The patient tolerated the procedure well without complication and was taken to recovery room in stable condition. Anesthesia Type IV sedation by MASKING MACHINE OPERATOR Estimated Blood Loss Estimated blood loss (mL): scant Specimens/Packing Specimens Removed port - not sent to RAGHU Damico DO Feb 08, 2023 11:48
--- NOTE | 2023-02-08 11:50 | Discharge Inst-Surgical ---
Discharge Inst-Surgical Depart Medication/Instructions New, Converted or Re-Newed RX: Other (use home meds) Patient Instructions Follow up Appt: Make appointment for 1 week. [phone] Instructions: No lifting greater than 20 pounds. No strenuous activity. May shower in 24 hours, no tub bath or soaking. Use incentive spirometer at home as directed. No Smoking Skin/Wound Care: May remove bandages in am. You need to leave the Dermabond on incision it will fall off on it's own. Symptoms to Report: Appetite Changes, Extremity Discoloration, Numbness/Tingling, Swelling Increased, Bleeding Excessive, Eyesight Changes, Pain Increased, Urine Color Change, Constipation(Persistent), Fever over 101 degree F, Pain/Pressure in chest, Urinating Difficulty, Cough Up/Vomit Blood, Heart Beat Irreg/Pounding, Pain/Pressure in jaw, Cramps in feet or legs, Lightheadedness, Pain/Pressure in shoulder, Diarrhea(Persistent), Memory Changes Suddenly, Questions/Concerns, Weight gain consecutive days, Dizziness/Fainting, Nausea/Vomiting, Shortness of Breath, Weight gain over 2 pounds If questions or concerns contact your physician Or seek help at emergency department. Activity Activity as Tolerated: Yes Activity Instructions: Avoid Stress to Incision Driving Instructions: You May Drive Diet Discharge Diet: No Restrictions Diet After 24 Hours: Clear Liquid if Nauseous If Any Problems/Questions/Issu: Contact Your Physician, Go to Emergency Room Skin/Wound Care Infection Signs and Symptoms: Increased Redness, Foul Odor of Wound, Increased Drainage, Skin Itchy or Has a Rash, Increased Swelling, Temperature Above 101 F Bathing Instructions: Shower Stitches/[place]/Dermabond Dis: RAGHU Giron DO Feb 08, 2023 11:50
[2023-02-08] MEDS ORDERED: LIDOCAINE/EPI 1%-1:100,000 (XYLOCAINE) 20ML INJ ONE (11:59)
--- NOTE | 2023-02-08 11:59 | Anesthesia-General Post-Op ---
MAC Patient Condition Mental Status/LOC: Same as Preop Cardiovascular: Satisfactory Nausea/Vomiting: Absent Respiratory: Satisfactory Pain: Controlled Complications: Absent Post Op Complications Complications None Follow Up Care/Instructions Patient Instructions None needed. Anesthesiology Discharge Order Discharge Order Patient is doing well, no complaints, stable vital signs, no apparent adverse anesthesia problems. No complications reported per nursing. LANA HERNANDEZ CRNA Feb 08, 2023 11:59
[2023-02-08] MEDS ORDERED: ONDANSETRON 4 MG/2 ML (SDV) Z0FRAN IVP PRN (12:00)
[2023-02-08] MEDS ORDERED: HYDROmorphone 2 MG/ML VIAL (DILAUDID) IV ONE (12:00)
== END 2023-02-08 12:25 | disposition home or self-care (01) ==
LOC: SDC 09:17
PROVIDERS: ATTEND Surgery
DX: T82.514A Breakdown (mechanical) of infusion catheter, initial encounter (principal); Z85.43 Personal history of malignant neoplasm of ovary; Z85.850 Personal history of malignant neoplasm of thyroid
CPT/HCPCS: 82947; 87081